=== PATIENT | female | born 1960 | race American Indian/Alaskan Native ===

== ENCOUNTER 2017-08-06 12:30 | Emergency (ER) | payer OTHER ==
[2017-08-06 12:33] VITALS: BMI 29.2
[2017-08-06 12:37] VITALS: BP 138/95; PULSE 125; RESP 20; TEMP 98.9; O2SAT 98
--- NOTE | 2017-08-06 13:12 | C.PDOC ---
History Of Present Illness 57 y/o female presents to ED for complaints of reproducible pain in chest and bilateral trapezius. 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 Denies any other physical complaints. Time Seen by Provider: 08/06/17 13:02 Chief Complaint (Nursing): Flu-like Symptoms History Per: Patient History/Exam Limitations: no limitations Onset/Duration Of Symptoms: Hrs Current Symptoms Are (Timing): Still Present Recent travel outside of the [place]: No Past Medical History Reviewed: Historical Data, Nursing Documentation, Vital Signs Vital Signs: Last Vital Signs Temp 98.9 F 08/06/17 12:33 Pulse 125 H 08/06/17 12:33 Resp 20 08/06/17 12:33 BP 138/95 H 08/06/17 12:33 Pulse Ox 98 08/06/17 13:11 - Medical History PMH: No Chronic Diseases Surgical History: No Surg Hx Family History: States: No Known Family Hx - Social History Hx Alcohol Use: No Hx Substance Use: No - Immunization History Hx Tetanus Toxoid Vaccination: No Hx Influenza Vaccination: Yes Hx Pneumococcal Vaccination: No Review Of Systems Constitutional: Negative for: Fever, Chills Cardiovascular: Positive for: Chest Pain (Digitally reproducible pain ) Gastrointestinal: Negative for: Nausea, Vomiting, Abdominal Pain, Diarrhea Musculoskeletal: Positive for: Other (Digitally reproducible pain in bilateral trapezius) Skin: Negative for: Rash Neurological: Negative for: Weakness, Numbness Physical Exam - Physical Exam Appears: Well, Non-toxic, No Acute Distress Skin: Normal Color, Warm, Dry Head: Atraumatic, Normacephalic Eye(s): bilateral: Normal Inspection, PERRL, EOMI Nose: Normal, No Discharge Oral Mucosa: Moist Neck: Trachea Midline, No Midline Cervical Tenderness, No Paracervical Tenderness, Supple Chest: Symmetrical, Tenderness (Intercostal parasternal ) Cardiovascular: Rhythm Regular, No Murmur Respiratory: Normal Breath Sounds, No Decreased Breath Sounds, No Rales, No Rhonchi, No Wheezing Gastrointestinal/Abdominal: Soft, No Tenderness Back: Other (bilateral trapezius tenderness) Extremity: Normal ROM, No Tenderness, No Pedal Edema, No Deformity, No Swelling Extremity: Bilateral: Atraumatic, Normal Color And Temperature, Normal ROM, Painful To Bear Weight Pulses: Left Dorsalis Pedis: Normal Neurological/Psych: Oriented x3 (Awake and alert), Normal Speech, Normal Motor, Normal Sensation, Normal Reflexes, Other (No focal deficits ) Gait: Steady ED Course And Treatment O2 Sat by Pulse Oximetry: 98 (RA) Pulse Ox Interpretation: Normal Medical Decision Making Medical Decision Making: Administered Mortin. Ordered EKG. 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 EKG: - Sinus Tachycardic at 110 bpm. Disposition Doctor Will See Patient In The: Office Counseled Patient/Family Regarding: Studies Performed, Diagnosis - Disposition Referrals: [facility] [Outside] [facility] [Outside] [facility] [Outside] Disposition: HOME/ ROUTINE Disposition Time: 13:11 Condition: GOOD Additional Instructions: continue ice packs 1/2 hour per hour to affected areas. Motrin 400-600 mg every 6 hours as needed for pain avoid heavy lifting for 1 week Instructions: Costochondritis, Muscle Strain (DC) Forms: [employer] ([employer]), Work Excuse - Clinical Impression Clinical Impression: Chest wall discomfort - Scribe Statement The provider has reviewed the documentation as recorded by the Scribe Robbi Shields All medical record entries made by the Scribe were at my direction and personally dictated by me. I have reviewed the chart and agree that the record accurately reflects my personal performance of the history, physical exam, medical decision making, and the department course for this patient. I have also personally directed, reviewed, and agree with the discharge instructions and disposition.
--- NOTE | 2017-08-07 22:29 | CARD ---
APPROVED REPORT EKG Measurement Heart [id number] ME [id number] <Conclusion> Sinus tachycardia Otherwise normal ECG
== END 2017-08-06 13:40 | disposition home or self-care (01) ==
LOC: EDBD → EDSEX → MERGE 12:30 → C.ER 12:30 → UNMERGE 12:30 → C.ER 13:40
DX: R07.89 Other chest pain (principal)